=== PATIENT | male | born 1985 ===

== ENCOUNTER 2017-02-14 16:38 | Emergency (ER) | payer SELFPAY ==
[2017-02-14] MEDS ORDERED: PROPARACAINE HCL 0.5% 300 GTTS/BOT SOLN.DROP ONE (17:01)
== END 2017-02-14 17:30 | disposition home or self-care (01) ==
LOC: ED 16:38
DX: H11.32 Conjunctival hemorrhage, left eye (principal); K29.70 Gastritis, unspecified, without bleeding; F17.210 Nicotine dependence, cigarettes, uncomplicated; W22.8XXA Striking against or struck by other objects, initial encounter; Y93.H2 Activity, gardening and landscaping
CPT/HCPCS: 99283 ×2; A9270